=== PATIENT | male | born 1970 | race Caucasian/White ===

== ENCOUNTER 2019-06-07 02:23 | Emergency (ER) | payer SELFPAY ==
[2019-06-07 02:39] VITALS: TEMP 98.9; BMI 24.7
[2019-06-07] MEDS ORDERED: ONDANSETRON 4 MG/2 ML VIAL IVPUSH ONE (03:27)
--- NOTE | 2019-06-07 03:27 | PDOC ---
History of Present Illness - General Chief Complaint: Nausea Stated Complaint: HIGH BP Time Seen by Provider: 06/07/19 03:27 History Source: Patient Exam Limitations: No Limitations - History of Present Illness Initial Comments: 49 year old male with PMH HTN, nicotine abuse presented to ED for generalized weakness, nausea, intermittent LLQ pain x3 days. Pt denied fever, vomiting, blood in stool, chest pain, shortness of breath. Pt reported he checked his blood glucose today and it was 177. Pt reported his abdominal pain is intermittent, exacerbated by movement, no alleviating factors, no association to food. Pt reported currently he has 0/10 pain. Allergies: NKDA ROS General: admitted to generalized weakness. denied fever, chills. HEENT: denied sore throat, rhinorrhea, ear pain. Cardiovascular: denied chest pain, palpitations, syncope, diaphoresis. Respiratory: denied shortness of breath, cough, sputum production, hemoptysis. Gastrointestinal: admitted to abdominal pain, nausea. denied vomiting, diarrhea , constipation, blood in stool. Genitourinary: denied dysuria, increased urinary frequency, hematuria, urinary incontinence, flank pain. Back: denied back pain. Musculoskeletal: denied joint pain, muscle pain, joint swelling. Neurological: denied headache, dizziness, numbness, tingling, weakness. Integumentary: denied rash, laceration, abrasion. Hematologic/Lymphatic: denied bruising or bleeding. PE Constitutional: Well-nourished, Well-developed, appearing stated age. HEENT: head is normocephalic, atraumatic. EOMI. PERRLA. Neck: supple. Full ROM. Cardiovascular: regular heart rhythm. no murmurs. no pericardial friction rub. Respiratory: clear to auscultation bilaterally. no crackles, rhonchi or wheezing. no stridor. Gastrointestinal: soft, nontender. normal bowel sounds. no rebound, guarding, masses. Extremities: peripheral pulses intact. no lower extremity edema. Neurological: CN 2-12 grossly intact. moves all four extremities. Psych: awake, alert, oriented x3. follows commands. answers questions appropriately. Past History - Past Medical History Allergies/Adverse Reactions: Allergies Allergy/AdvReac Type Severity Reaction Status Date / Time No Known Allergies Allergy Verified 06/07/19 02:39 COPD: No Diabetes: Yes - Suicide/Smoking/Psychosocial Hx Smoking History: Never smoked *Physical Exam - Vital Signs Last Vital Signs Temp Pulse Resp BP Pulse Ox 98.9 F 77 18 142/89 100 06/07/19 02:37 06/07/19 02:37 06/07/19 02:37 06/07/19 02:37 06/07/19 02:37 ED Treatment Course - LABORATORY CBC & Chemistry Diagram: 06/07/19 04:00 06/07/19 04:00 Medical Decision Making - Medical Decision Making 49 year old male with above PMH presented to ED for generalized weakness, nausea , intermittent LLQ pain. Initial Vital Signs Temp Pulse Resp BP Pulse Ox 98.9 F 77 18 142/89 100 06/07/19 02:37 06/07/19 02:37 06/07/19 02:37 06/07/19 02:37 06/07/19 02:37 Afebrile. No tachycardia. No tachypnea. Mild hypertension. No hypoxia on room air. Labs ordered: CBC, CMP, UA/UC Imaging ordered: CT abdomen/pelvis with IV contrast Medications ordered: normal saline bolus 1000 cc once, zofran 4 mg IV once EKG performed at 0323: rate 70, regular rhythm, normal axis, normal intervals, no acute ST changes. 06/07/19 04:42 CBC WBC 15.5 K/mm3 (4.0-10.0) H 06/07/19 04:00 RBC 5.10 M/mm3 (4.00-5.60) 06/07/19 04:00 Hgb 15.2 GM/dL (11.7-16.9) 06/07/19 04:00 Hct 44.8 % (35.4-49) 06/07/19 04:00 MCV 87.8 fl (80-96) 06/07/19 04:00 MCH 29.8 pg (25.7-33.7) 06/07/19 04:00 MCHC 33.9 g/dl (32.0-35.9) 06/07/19 04:00 RDW 12.5 % (11.9-15.9) 06/07/19 04:00 Plt Count 262 K/MM3 (134-434) 06/07/19 04:00 MPV 7.8 fl (7.5-11.1) 06/07/19 04:00 Absolute Neuts (auto) 12.7 K/mm3 (1.5-8.0) H 06/07/19 04:00 Neutrophils % 81.9 % (42.8-82.8) 06/07/19 04:00 Lymphocytes % 14.3 % (8-40) 06/07/19 04:00 Monocytes % 3.2 % (3.8-10.2) L 06/07/19 04:00 Eosinophils % 0.2 % (0-4.5) 06/07/19 04:00 Basophils % 0.4 % (0-2.0) 06/07/19 04:00 Nucleated RBC % 0 % (0-0) 06/07/19 04:00 Leukocytosis with left shift. No anemia. 06/07/19 05:39 CMP Sodium 141 mmol/L (136-145) 06/07/19 04:00 Potassium 5.0 mmol/L (3.5-5.1) 06/07/19 04:00 Chloride 103 mmol/L (98-107) 06/07/19 04:00 Carbon Dioxide 29 mmol/L (21-32) 06/07/19 04:00 Anion Gap 9 MMOL/L (8-16) 06/07/19 04:00 BUN 21.5 mg/dL (7-18) H 06/07/19 04:00 Creatinine 1.2 mg/dL (0.55-1.3) 06/07/19 04:00 Est GFR (CKD-EPI)AfAm 82.96 06/07/19 04:00 Est GFR (CKD-EPI)NonAf 71.58 06/07/19 04:00 Random Glucose 103 mg/dL (74-106) 06/07/19 04:00 Calcium 10.2 mg/dL (8.5-10.1) H 06/07/19 04:00 Phosphorus 3.3 mg/dL (2.5-4.9) 06/07/19 04:00 Magnesium 2.1 mg/dL (1.8-2.4) 06/07/19 04:00 Total Bilirubin 0.4 mg/dL (0.2-1) 06/07/19 04:00 AST 22 U/L (15-37) 06/07/19 04:00 ALT 30 U/L (13-61) 06/07/19 04:00 Alkaline Phosphatase 91 U/L (45-117) 06/07/19 04:00 Total Protein 8.0 g/dl (6.4-8.2) 06/07/19 04:00 Albumin 4.3 g/dl (3.4-5.0) 06/07/19 04:00 No electrolyte abnormalities. No LEXI. No transaminitis. 06/07/19 05:44 Urine Test Results Urine Color Yellow 06/07/19 05:05 Urine Appearance Clear 06/07/19 05:05 Urine pH 5.5 (5.0-8.0) 06/07/19 05:05 Ur Specific [place] 1.012 (1.010-1.035) 06/07/19 05:05 Urine Protein Negative (NEGATIVE) 06/07/19 05:05 Urine Glucose (UA) Negative (NEGATIVE) 06/07/19 05:05 Urine Ketones Negative (NEGATIVE) 06/07/19 05:05 Urine Blood Negative (NEGATIVE) 06/07/19 05:05 Urine Nitrite Negative (NEGATIVE) 06/07/19 05:05 Urine Bilirubin Negative (NEGATIVE) 06/07/19 05:05 Ur Leukocyte Esterase Negative (NEGATIVE) 06/07/19 05:05 Negative for UTI. Negative for hematuria. Negative for proteinuria. 06/07/19 06:31 CT report: Name: MIO MURDOCK DEPARTMENT OF RADIOLOGY Phys: Leonarda Leo RESIDENT : 1970 Age: 49 Sex: M [facility] Acct: [id number] Loc: [address] Exam Date: 06/07/19 Status: [place] [address] Unit Number: [id number] EXAM#: TYPE/EXAM: RESULT: [id number] CT/ABDOMEN PELVIS CT WITH CONTR HISTORY PROVIDED: Left lower quadrant pain. Sequential axial images were obtained from the domes of the diaphragms through the symphysis pubis following the administration of both oral and intravenous contrast material. The liver, spleen , pancreas, adrenal glands and kidneys demonstrate no significant abnormalities. There is no evidence of intra-abdominal or retroperitoneal lymphadenopathy or fluid collections. There is no evidence of pneumoperitoneum, bowel obstruction or abscess. CT evidence of acute appendicitis or diverticulitis. Examination of the pelvis demonstrates no evidence of pelvic masses, fluid collections or lymphadenopathy. The urinary bladder is moderately distended. Retained fecal material is noted throughout the colon and rectum. There is no evidence of acute bony pathology. Old left pelvic fractures are identified. IMPRESSION: No evidence of acute pathology within the abdomen or pelvis. Reported By: Joseph Watts MD 06/07/19 0964 Pt reported improvement of symptoms. Pt discharged. *DC/Admit/Observation/Transfer Diagnosis at time of Disposition: Nausea, Generalized weakness - Discharge Dispostion Disposition: HOME Condition at time of disposition: Improved Decision to Admit order: No - Referrals Referrals: Kelsey Singer MD [Primary Care Provider] - - Patient Instructions Printed Discharge Instructions: DI for Nausea -- Adult Additional Instructions: Your white blood cell count was high, have this number repeated by your primary care doctor within a week. This can be a marker of infection vs inflammation. Follow up with your primary care doctor within 3 days. Your care is not complete until you follow up. Return to the Emergency Department for increasing pain, shortness of breath, chest pain, vomiting, blood in stool, numbness, weakness, loss of bowel/bladder function or any other new, worsening or concerning symptoms. - Post Discharge Activity Forms/Work/School Notes: Back to Work
[2019-06-07] MEDS ORDERED: FAMOTIDINE 20 MG/50 ML IVPB 20 MG/50 ML MG IVPB ONE (03:28)
[2019-06-07] MEDS ORDERED: SODIUM CHLORIDE 1,000 ML IV STA (03:28)
[2019-06-07] MEDS ORDERED: ONDANSETRON 4 MG/2 ML VIAL ONE (03:58)
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
[2019-06-07 04:22] LABS: EOS % 0.2 % (0-4.5); HEMOGLOBIN 15.2 GM/dL (11.7-16.9); MCHC 33.9 g/dl (32.0-35.9); RDW 12.5 % (11.9-15.9)
[2019-06-07 04:27] LABS: BASO % 0.4 % (0-2.0); HEMATOCRIT 44.8 % (35.4-49); LYMPH % 14.3 % (8-40); MCH 29.8 pg (25.7-33.7); MEAN CELL VOLUME 87.8 fl (80-96); MEAN PLT VOLUME 7.8 fl (7.5-11.1); MONO % 3.2 % (3.8-10.2); NEUT % 81.9 % (42.8-82.8); PLATELET COUNT 262 K/MM3 (134-434); WHITE BLOOD COUNT 15.5 K/mm3 (4.0-10.0)
[2019-06-07 05:25] LABS: ALBUMIN 4.3 g/dl (3.4-5.0); BILIRUBIN,TOTAL 0.4 mg/dL (0.2-1); BLOOD UREA NITROGEN 21.5 mg/dL (7-18); CALCIUM 10.2 mg/dL (8.5-10.1); CREATININE 1.2 mg/dL (0.55-1.3); MAGNESIUM 2.1 mg/dL (1.8-2.4)
[2019-06-07 05:27] LABS: PH,URINE 5.5 (5.0-8.0); URINE APPEARANCE CLEAR; URINE BILIRUBIN NEGATIVE (NEGATIVE); URINE COLOR YELLOW; URINE GLUCOSE (UA) NEGATIVE (NEGATIVE); URINE KETONE NEGATIVE (NEGATIVE); URINE LEUK ESTERASE NEGATIVE (NEGATIVE); URINE NITRITE NEGATIVE (NEGATIVE); URINE PROTEIN NEGATIVE (NEGATIVE); URINE UROBILINOGEN 0.2 mg/dL (0.2-1.0)
[2019-06-07 07:16] VITALS: BP 145/93; PULSE 74
--- NOTE | 2019-06-07 16:33 | EKG ---
Test Reason : Blood Pressure : / mmHG Vent. Rate : 070 BPM Atrial Rate : 070 BPM P-R Int : 194 ms QRS Dur : 090 ms QT Int : 362 ms P-R-T Axes : 044 053 040 degrees QTc Int : 390 ms NORMAL SINUS RHYTHM NORMAL ECG NO PREVIOUS ECGS AVAILABLE Confirmed by YE BLANKENSHIP MD ([id number]) on 06/07/2019 4:33:38 PM Referred By: Confirmed By:YE BLANKENSHIP MD
== END 2019-06-07 07:10 | disposition home or self-care (01) ==
LOC: JER 02:23
PROC: 3E0337Z Introduction of Electrolytic and Water Balance Substance into Peripheral Vein, Percutaneous Approach (ICD-10-PCS; principal; 2019-06-07)
PROC: 3E033GC Introduction of Other Therapeutic Substance into Peripheral Vein, Percutaneous Approach (ICD-10-PCS; 2019-06-07)
DX: R53.1 Weakness (principal)
CPT/HCPCS: 36415; 74177-TC; 80053; 81003; 83735; 84100; 85025; 87086; 93005; 93010; 99283-25; J7030